=== PATIENT | female | born 1985 | race Caucasian/White ===

== ENCOUNTER 2020-09-03 11:41 | Outpatient (NON) | payer OTHER, SELFPAY ==
[2020-09-04 22:36] LABS: SARS-CoV-2 RNA PCR Negative
== END 2020-09-03 11:42 ==
LOC: ANHCOVIDDT 11:42
PROVIDERS: PCP Family Medicine; Visit Provider Family Medicine
DX: Z20.828 Contact with and (suspected) exposure to other viral communicable diseases (principal)
CPT/HCPCS: 87635; C9803; U0003

== ENCOUNTER → 2021-04-18 11:18 | Outpatient (CLI) | payer OTHER, SELFPAY ==
--- NOTE | ~2021-04-18 | US_ITS ---
EXAMINATION: US pelvic complete w TV DATE: 04/18/2021 11:44 INDICATION: Enlarged uterus. Menorrhagia. Comparison:Ultrasound dated 10/06/2018 TECHNIQUE: Multiple transabdominal and endovaginal sonographic images of the pelvis performed. FINDINGS: The uterus measures 9.3 x 4.5 x 5.9 cm. The endometrial complex measures 7 mm. The right ovary measures 3.6 x 1.3 x 3 cm and the left ovary measures 3.6 x 1.8 x 3.1 cm. There are small follicles in each ovary. Normal doppler signal in both ovaries. There is no free fluid in the pelvis. There are no abnormal masses seen on either side. IMPRESSION: 1. Unremarkable pelvic ultrasound. Reviewed, dictated and finalized at location A.
== END ==
PROVIDERS: Visit Provider Obstetrics & Gynecology
DX: N85.2 Hypertrophy of uterus (principal)
CPT/HCPCS: 76830; 76856

== ENCOUNTER 2025-05-12 07:39 | Outpatient (CLI) | payer OTHER, SELFPAY ==
--- NOTE | ~2025-05-12 | MM_ITS ---
EXAMINATION: MM screening oscar BI w hpilippe HISTORY: Screening TECHNIQUE: Craniocaudal and mediolateral oblique 3-D tomosynthesis images were obtained and synthetic 2-D images were generated. CAD analysis was submitted and interpreted. COMPARISON: No prior mammogram is available for comparison at this institution. BREAST PARENCHYMAL COMPOSITION: Dense: The breasts are extremely dense, which lowers the sensitivity of mammography. FINDINGS: There are asymmetries of the right breast in the periareolar location as well as scattered throughout the left breast. There are no suspicious calcifications or architectural distortion. IMPRESSION: 1. Bilateral breast asymmetries. 2. Additional mammographic views and possible breast ultrasound are recommended. BI-RADS Category 0: Incomplete: Needs additional imaging evaluation. Reviewed, dictated and finalized at location [] IMPRESSION: 1. Bilateral breast asymmetries. 2. Additional mammographic views and possible breast ultrasound are recommended . BI-RADS Category 0: Incomplete: Needs additional imaging evaluation.
== END 2025-05-12 07:40 | disposition home or self-care (01) ==
LOC: MICIMG 07:40
PROVIDERS: PCP Family Medicine; Visit Provider Nurse Practitioner Family
DX: Z12.31 Encounter for screening mammogram for malignant neoplasm of breast (principal); R92.8 Other abnormal and inconclusive findings on diagnostic imaging of breast
CPT/HCPCS: 77063; 77067

== ENCOUNTER 2025-06-06 08:05 | Outpatient (CLI) | payer OTHER, SELFPAY ==
--- NOTE | ~2025-06-06 | MM_ITS ---
EXAMINATION: MM diagnostic oscar BI w philippe INDICATION: 39-year old female; BI-RADS 0, callback to evaluate Both breasts asymmetries. COMPARISON: 05/12/2025 TECHNIQUE: Digital breast tomosynthesis True lateral view and spot compression pain CC and MLO views of Both breasts were obtained with computer-aided detection to assist in interpretation of the study. FINDINGS: The breasts are extremely dense, which lowers the sensitivity of mammography. The asymmetry seen in the periareolar right breast and scattered in the left breast on the screening mammogram effaces on additional views, compatible with normal overlapping tissue. Benign-appearing co arse calcifications noted in the left breast. IMPRESSION: Bilateral breast asymmetries represents superimposition of fibroglandular tissue. No further investig ation necessary. RECOMMENDATION: Annual screening mammography in 12 months BI-RADS 2, BENIGN Reviewed, dictated and finalized at location B. IMPRESSION: Bilateral breast asymmetries represents superimposition of fibroglandular tissu e. No further investigation necessary. RECOMMENDATION: Annual screening mammography in 12 months BI-RADS 2, BENIGN
--- OUTSIDE RECORDS SUMMARY | 2025-06-06 08:10 | XMS_ITS ---
Author Organization [facility] ([address]) Address [address] [place] [phone] Care Team Providers Care Hot Saw Operator Name Role Phone Luis Escalante [phone] REASON FOR VISIT InBody Follow-up Encounters Encounter Location Date Provider Diagnosis [facility] ([address]) [address] [place] [phone] 08/03/2024 Luis Escalante Plan Of Treatment No Information Progress Notes * Zan CHAOOB:1985 (39 yo F)Acc No.[id number]:08/03/2024 InBody Follow-up Patient: Camille IRELAND Provider: Refugio Escalante MD :1985 A ge:38 Y S ex:Female Date:08/03/2024 Address:[address] [place] [address] [facility] Subjective: * Chief Complaints: * 1 . InBody Follow-up. * Medical History: Objective: * Vitals: Assessment: Plan: * Treatment: * Billing Information: * Visit Code: * Procedure Codes: 38892 InBody Follow-up. * Electronic signature of Justice Escalante MD, FAAAAI on 06/06/2025 at 08:10 AM CDT Sign off status: Pending * Provider: Refugio Escalante MD Date: 1 Generated for Printi ng/Faxing/eTransmitting on: 0 06/06/2025 08:10 AM CDT
--- OUTSIDE RECORDS SUMMARY | 2025-06-06 08:11 | XMS_ITS | Patient Health Record ---
Author Organization [facility] ([address]) Address [address] [place] [phone] Care Team Providers Care Pet Technologist Name Role Phone Luis Escalante Unavailable [phone] Reason For Referral No Information Problems Problem Type SNOMED Code ICD Code Onset Dates Problem Status W/U Status Risk Notes Problem Chronic fatigue syndrome (disorder) (11741185) Chronic fatigue, unspecified (R53.82) Active confirmed Vital Signs Height 67 in 07/17/2024 Weight 154.2 lbs 07/17/2024 BMI 24.15 kg/m2 07/17/2024 Encounters Encounter Location Date Provider Diagnosis [facility] ([address]) [address] [place] [address] 06/08/2024 Luis Escalante Abnormal weight gain R63.5 [facility] ([address]) [address] [place] [address] 06/22/2024 Luis Escalante Abnormal weight gain R63.5 [facility] ([address]) [address] [place] [address] 07/10/2024 Luiseze Escalante Abnormal weight gain R63.5 [facility] ([address]) [address] [place] [address] 07/17/2024 Luis Win Abnormal weight gain R63.5 [facility] ([address]) [address] [place] [address] 08/03/2024 Luis Win Abnormal weight gain R63.5 [facility] ([address]) [address] [place] [address] 06/15/2024 Luis Escalante Abnormal weight gain R63.5 [facility] ([address]) [address] [place] [address] 06/29/2024 Luis Escalante Abnormal weight gain R63.5 Assessments Encounter Date Diagnosis (ICD Code) Assessment Notes Treatment Notes Treatment Clinical Notes Section Notes 06/08/2024 Abnormal weight gain (ICD-10 - R63.5) 06/15/2024 Abnormal weight gain (ICD-10 - R63.5) 06/22/2024 Abnormal weight gain (ICD-10 - R63.5) 06/29/2024 Abnormal weight gain (ICD-10 - R63.5) 07/10/2024 Abnormal weight gain (ICD-10 - R63.5) 07/17/2024 Abnormal weight gain (ICD-10 - R63.5) 08/03/2024 Abnormal weight gain (ICD-10 - R63.5) Plan Of Treatment No Information
--- OUTSIDE RECORDS SUMMARY | 2025-06-06 08:11 | XMS_ITS ---
Author Organization [facility] ([address]) Address [address] [place] [address] Care Team Providers Care Telehealth Nurse Name Role Phone Boris Luis Cady [phone] REASON FOR VISIT [facility] Weight Loss, on tirzepatide, no side effects, reports good appetite suppression for 6-7 days. No new concerns, Desired weight loss: 20 lbs. Lost -0.0 lbs since last visit. Total loss of-14.6 lbs, No history MTC or MEN2 or pancreatitis, Concerned about future DM and OA Encounters Encounter Location Date Provider Diagnosis [facility] ([address]) [address] [place] [phone] 08/03/2024 Luis Escalante Abnormal weight gain R63.5 Assessments Encounter Date Diagnosis (ICD Code) Assessment Notes Treatment Notes Treatment Clinical Notes Section Notes 08/03/2024 Abnormal weight gain (ICD-10 - R63.5) Plan Of Treatment Next Appt Details Follow Up: 1 Week, Reason: G LP-1 Agonist Administration Procedure Notes * Category Sub-Category Detail Notes [facility]: Weight Management tirzepatide Indication: weig ht loss Concentration: 10 mg/mL Volume Administered: 0.15 mL Dose Administered: 1.5 mg Route: SQ Location: [facility] Frequency: weekly Lot Number/Expiration: Medication Source: [facility] Adverse Reaction: None Progress Notes * RADHAMES ADAMALZanOB:1985 (39 yo F)Acc No.[id number]:08/03/2024 Weight Loss Patient: Bandar CEBALLOS SCOTTCamille Provider: Refugio Escalante MD :1985 A ge:38 Y S ex:Female Date:08/03/2024 [facility] Subjective: * Chief Complaints: * 1 . [facility] Weight Loss, on tirzepatide, no side effects, reports good appetite suppression for 6-7 days. No new concerns. 2. Desired weight loss: 20 lbs. Lost -0.0 lbs since last visit. Total loss of -14.6 lbs. 3. No history MTC or MEN2 or pancreatitis. 4. Concerned about future DM and OA. * Medical History: Objective: * Vitals: Assessment: * Assessment: 1. A bnormal weight gain - R63.5 (Primary) Plan: * Treatment: * Procedures: [facility]: Weight Management: tirzepatide I ndication w eight loss C oncentration 1 0 mg/mL V olume Administered 0 .15 mL D ose Administered 1 .5 mg R oute S Q L ocation L UA F requency w eekly L ot Number/Expiration 0 M edication Source H [facility] A dverse Reaction N one * Follow Up: 1 Week (Reason: GLP-1 Agonist Administration) * Billing Information: * Visit Code: * Procedure Codes: 84348 [facility] - 2 months Prepay (tirzepatide) Tier 1 (0.5-5 mg). * Electronic signature of Justice Escalante MD, FAAAAI on 06/06/2025 at 08:10 AM CDT Sign off status: Pending * Provider: Refugio Escalante MD Date: 1 Generated for Printi ng/Faxing/eTransmitting on: 0 06/06/2025 08:10 AM CDT
--- OUTSIDE RECORDS SUMMARY | 2025-06-06 08:11 | XMS_ITS | Encounter Summary ---
Author Organization [facility] Address 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
--- OUTSIDE RECORDS SUMMARY | 2025-06-06 08:11 | XMS_ITS | Clinical Summary ---
Author Organization [facility] Address [address] [place] [phone] Phone Care Team Providers Care Grinder And Plater Name Role Phone Unavailable Primary Care Provider Unavailabl e Social History Tobacco Use Types Packs/Day Years Used Date Smoking Tobacco: Never Assessed Comments Unknown Sex and Gender Information Value Date Recorded Sex Assigned at Not on file Legal Sex Female 5:46 AM RN STAFF Gender Identity Not on file Sexual Orientation Not on file Plan of Treatment Health Maintenance Due Date Last Done Comments HPV VACCINES (1 - 3-dose series) 01/01/2000 DTAP/TDAP/TD VACCINES (1 - Tdap) 01/01/2004 HEPATITIS B VACCINES (1 of 3 - 19+ 3-dose series) 12/2003 HPV/Cotest (21-29) 2005 CERVICAL CANCER SCREENING 2014 HPV/Cotest (30-65) 2014 PAP SMEAR 2014 BREAST CANCER SCREENING 2024 INFLUENZA VACCINE (#1) 2025
--- OUTSIDE RECORDS SUMMARY | 2025-06-06 08:11 | XMS_ITS | Clinical Summary ---
Author Organization [facility] Address [address] [place] [address] Care Team Providers Care Oyster Shucker Name Role Phone Vel Squires MD Primary Care Provider [phone] Source Comments [facility],non-owned Affiliates and Associated Physician Practices is amultiple site organization consisting of ambulatory clinics and hospital sitesin [place], [place], [place] and [place]. This disclosure is being madepursuant to the Care Everywhere program and may not contain all information available regarding this patient. Last updated 18.[facility] Allergies No known active allergies Immunizations Immunization Administration Dates Next Due TDAP (7yrs+) 03/22/2019 Social History Tobacco Use Types Packs/Day Years Used Date Smoking Tobacco: Never Assessed Comments Unknown Sex and Gender Information Value Date Recorded Sex Assigned at Not on file Legal Sex Female 2:20 PM CDT Gender Identity Not on file Sexual Orientation Not on file Plan of Treatment Health Maintenance Due Date Last Done Comments LIPID TESTING 1985 MAMMOGRAM 1985 HIV SCREENING 01/01/2000 HEPATITIS C SCREENING 12/27/2002 HEPATITIS B VACCINE (1 of 3 - 19+ 3-dose series) 01/01/2004 HPV VACCINE (1 - 3-dose SCDM series) 01/01/2012 COVID-19 VACCINE ( - 2023-2 5 season) 2024 DEPRESSION SCREENING 11/01/2024 INFLUENZA VACCINE (#1) 2025 DTAP/TDAP/TD VACCINES (2 - T d or Tdap) 03/22/2029 03/22/2019 ZOSTER VACCINE (1 of 2) 2034 HIB VACCINE Aged Out No longer eligi ble based on patient's age to complete this topic MENINGOCOCCAL (Group B) VACC INE SHARED DECISION-MAKING Aged Out No longer eligibl e based on patient's age to complete this topic MENINGOCOCCAL GROUPS A/C/Y/W VACCINE Aged Out No longer eligible b ased on patient's age to complete this topic PNEUMOCOCCAL VACCINE Aged Out No long er eligible based on patient's age to complete this topic Insurance [id number] CARE Member Subscriber Plan / Payer (Ef fective for All Dates) Name:Radhames Chavez, Camille L Relation to Subscriber:Self Name:RADHAMESPauCAMILLE CHAVEZ Samina Payer ID:[id number] (NAIC) Type:[employer] Address: [place] [id number] CARE Member Subscriber Plan / Payer (Ef fective 2018-Present) Name:Camille Garcia Relation to Subscriber:Self Name:Radhames Chavez Camille Samina Payer ID:[id number] (NAIC) Type:[employer] Address: [place] [id number] [place] [id number] Care Teams Oyster Shucker Relationship Specialty Start Date End Date Vel Squires MD PCP - General Family Medicine 03/22/19
--- OUTSIDE RECORDS SUMMARY | 2025-06-06 08:11 | XMS_ITS ---
Author Organization [facility] ([address]) Address [address] [place] [phone] Care Team Providers Care Pit Supervisor Name Role Phone Boris Luiseze Lazar [phone] REASON FOR VISIT [facility] Weight Loss, on tirzepatide, no side effects, reports good appetite suppression for 6-7 days. No new concerns, Desired weight loss: 20 lbs. Lost -0.0 lbs since last visit. Total loss of-14.6 lbs, No history MTC or MEN2 or pancreatitis, Concerned about future DM and OA Encounters Encounter Location Date Provider Diagnosis [facility] ([address]) [address] [place] [phone] 07/26/2024 Luis Escalante Abnormal weight gain R63.5 Assessments Encounter Date Diagnosis (ICD Code) Assessment Notes Treatment Notes Treatment Clinical Notes Section Notes 07/26/2024 Abnormal weight gain (ICD-10 - R63.5) Plan Of Treatment Next Appt Details Follow Up: 1 Week, Reason: G LP-1 Agonist Administration Procedure Notes * Category Sub-Category Detail Notes [facility]: Weight Management tirzepatide Indication: weig ht loss Concentration: 10 mg/mL Volume Administered: 0.15 mL Dose Administered: 1.5 mg Route: SQ Location: [facility] Frequency: weekly Lot Number/Expiration: Medication Source: [facility] Adverse Reaction: None Progress Notes * RADHAMES ADAMALZanOB:1985 (39 yo F)Acc No.[id number]:07/26/2024 Weight Loss Patient: Bandar CEBALLOS SCOTTCamille Provider: Refugio Escalante MD :1985 A ge:38 Y S ex:Female Date:07/26/2024 [facility] [place] Subjective: * Chief Complaints: * 1 . [...] ot Number/Expiration 0 M edication Source H [facility] A dverse Reaction N one * Follow Up: 1 Week (Reason: GLP-1 Agonist Administration) * Billing Information: * Visit Code: * Procedure Codes: * Electronic signature of Justice Escalante MD, FAAAAI on 06/06/2025 at 08:10 AM CDT Sign off status: Pending * Provider: Refugio Escalante MD Date: 0 07/26/2024 Generated for Printi ng/Emilie/eTransmitting on: 0 06/06/2025 08:10 AM CDT
== END 2025-06-06 08:06 | disposition home or self-care (01) ==
PROVIDERS: PCP Family Medicine; Visit Provider Nurse Practitioner Family
DX: R92.8 Other abnormal and inconclusive findings on diagnostic imaging of breast (principal)
CPT/HCPCS: 77062; 77066; G0279